=== PATIENT | female | born 1990 | race Caucasian/White ===

== ENCOUNTER 2023-01-31 10:40 | Outpatient (CLI) | payer BC, SELFPAY | END 2023-01-31 10:41 | disposition home or self-care (01) | PROVIDERS: PCP Family Medicine; Visit Provider Family Medicine | DX: Z00.00 Encounter for general adult medical examination without abnormal findings (principal); E78.5 Hyperlipidemia, unspecified; R63.5 Abnormal weight gain; Z13.29 Encounter for screening for other suspected endocrine disorder | CPT/HCPCS: 80061; 84443 ==

== ENCOUNTER 2024-03-25 10:06 | Outpatient (CLI) | payer BC, SELFPAY | END 2024-03-25 10:07 | disposition home or self-care (01) | LOC: LKVREF 10:07 | PROVIDERS: PCP Family Medicine; Visit Provider Family Medicine | DX: E78.00 Pure hypercholesterolemia, unspecified (principal) | CPT/HCPCS: 80061; 87624 ==

== ENCOUNTER 2025-03-27 10:33 | Outpatient (CLI) | payer OTHER, SELFPAY | END 2025-03-27 10:34 | disposition home or self-care (01) | LOC: LKVREF 10:39 | PROVIDERS: PCP Family Medicine; Visit Provider Family Medicine | DX: E78.5 Hyperlipidemia, unspecified (principal) | CPT/HCPCS: 80061 ==